=== PATIENT | male | born 1940 | race Caucasian/White ===

== ENCOUNTER 2020-12-16 16:49 | Emergency (ER) | payer OTHER ==
[~2020-12-16] VITALS: Ht 185.4 cm; Wt 93.4 kg
[2020-12-16] MEDS ORDERED: Lipitor20 MG PO (17:06)
[2020-12-16] MEDS ORDERED: PAXIL40 MG PO (17:07)
[2020-12-16] MEDS ORDERED: METO100ER PO (17:07)
[2020-12-16] MEDS ORDERED: GABA800 PO (17:07)
[2020-12-16] MEDS ORDERED: OMEP20ER PO (17:08)
[2020-12-16] MEDS ORDERED: ISOSORBIDE MONO30 MG PO (17:08)
[2020-12-16] MEDS ORDERED: HYDCHL25 PO (17:09)
[2020-12-16] MEDS ORDERED: ELIQUIS5 MG PO (17:09)
[2020-12-16 17:10] LABS: BASOPHILS ABSOLUTE AUTO 0.04 K/mm3 (0.00-0.23); BASOPHILS PERCENT AUTO 1 % (0-2); EOSINOPHILS ABSOLUTE AUTO 0.13 K/mm3 (0.00-0.68); EOSINOPHILS PERCENT AUTO 2 % (0-6); Hematocrit 36.7 % (37.0-53.0); Hemoglobin 11.9 g/dL (13.5-17.5); IMMATURE GRAN ABSOLUTE AUTO 0.02 K/mm3 (0.00-0.10); IMMATURE GRAN PERCENT AUTO 0 % (0-1); LYMPHOCYTES ABSOLUTE AUTO 1.21 K/mm3 (0.84-5.20); LYMPHOCYTES PERCENT AUTO 14 % (21-46); MONOCYTES ABSOLUTE AUTO 0.77 K/mm3 (0.16-1.47); MONOCYTES PERCENT AUTO 9 % (4-13); Mean Corpuscular HGB 32.6 pg (26.0-34.0); Mean Corpuscular HGB Conc 32.4 g/dL (31.5-36.5); Mean Corpuscular Volume 101 fL (80-100); Mean Platelet Volume 10.3 fL (9.1-12.4); NEUTROPHILS ABSOLUTE AUTO 6.54 K/mm3 (1.96-9.15); NEUTROPHILS PERCENT AUTO 75 % (41-73); Platelet Count 151 K/mm3 (150-400); RDW Coefficient Variation 13.9 % (11.7-14.2); RDW Standard Deviation 51.9 fL (35.1-46.3); Red Blood Cell Count 3.65 M/mm3 (4.30-5.90); White Blood Cell Count 8.71 K/mm3 (4.00-11.30)
[2020-12-16] MEDS ORDERED: ATEN100 PO (17:10)
[2020-12-16] MEDS ORDERED: TRAZ50 PO (17:10)
[2020-12-16 17:34] LABS: Alanine Aminotransfer (ALT/SGP 19 U/L (12-78); Albumin, Blood 3.5 g/dL (3.4-5.0); Albumin/Globulin Ratio 1.1 (0.8-1.8); Alk Phos 57 U/L (50-136); Anion Gap 5 mmol/L (6-16); Aspartate Aminotrans (AST/SGOT 12 U/L (12-37); Bilirubin, Total 1.8 mg/dL (0.1-1.0); Blood Urea Nitrogen 18 mg/dL (8-24); Bun/Creatinine Ratio 24.6 (12.0-20.0); CO2, Blood 29 mmol/L (21-32); Chloride, Blood 107 mmol/L (98-108); Creatinine, Blood 0.73 mg/dL (0.60-1.20); Globulin, Blood 3.3 g/dL (2.2-4.0); Glomerular Filtration Rate >60 (60-); Glucose, Blood 145 mg/dL (70-99); Sodium, Blood 141 mmol/L (136-145); Total Protein, Blood 6.8 g/dL (6.4-8.2); Troponin I <0.015 ng/mL (0.000-0.040)
[2020-12-16] MEDS ORDERED: HYDR1TAB94 PO (18:35)
== END 2020-12-16 19:14 | disposition home or self-care (01) ==
LOC: ER 16:49
PROVIDERS: Emergency Medicine
DX: S20.214A Contusion of middle front wall of thorax, initial encounter (principal); R91.1 Solitary pulmonary nodule; I48.91 Unspecified atrial fibrillation; I10 Essential (primary) hypertension; E78.5 Hyperlipidemia, unspecified; E11.9 Type 2 diabetes mellitus without complications; Z79.01 Long term (current) use of anticoagulants; Z79.899 Other long term (current) drug therapy; W01.10XA Fall on same level from slipping, tripping and stumbling with subsequent striking against unspecified object, initial encounter
CPT/HCPCS: 71260; 80053; 84484; 85025; 93005; 93010; 99284-25; Q9967

== ENCOUNTER 2022-06-27 12:38 | Day surgery (SDC) | payer OTHER ==
[~2022-06-27] VITALS: Ht 185.4 cm; Wt 77.7 kg
[~2022-06-27 12:38] MED LIST: ATEN100 PO; ELIQUIS5 MG PO; GABA800 PO; HYDCHL25 PO; HYDR1TAB94 PO; ISOSORBIDE MONO30 MG PO; Lipitor20 MG PO; METO100ER PO; OMEP20ER PO; PAXIL40 MG PO; TRAZ50 PO
[2022-06-27] MEDS ORDERED: ACET500 PO (13:22)
[2022-06-27] MEDS ORDERED: Vitamin B-12100 MCG PO (13:22)
[2022-06-27] MEDS ORDERED: MAGNESIUM OXID500 MG PO (13:23)
[2022-06-27] MEDS ORDERED: ATOR10 PO (13:23)
--- NOTE | 2022-06-27 13:33 | NUR ---
06/27/22 1333 Brandy Granger CALL LIGHT WITHIN REACH. TETRACAINE AT 1322 IN LEFT EYE AND PLEDGETT AT 1325
== END 2022-06-27 14:50 | disposition home or self-care (01) ==
LOC: ORSCSDS 12:38
PROVIDERS: Ophthalmology
PROC: 08RK3JZ Replacement of Left Lens with Synthetic Substitute, Percutaneous Approach (ICD-10-PCS; principal; 2022-06-27 13:30)
DX: H25.12 Age-related nuclear cataract, left eye (principal); I10 Essential (primary) hypertension; I48.91 Unspecified atrial fibrillation; Z79.01 Long term (current) use of anticoagulants; Z79.899 Other long term (current) drug therapy
CPT/HCPCS: J2001; J2250; J3010; J3301; J7040; V2632

== ENCOUNTER 2022-07-06 09:24 | Day surgery (SDC) | payer OTHER ==
[~2022-07-06] VITALS: Ht 185.4 cm; Wt 77.0 kg
[~2022-07-06 09:24] MED LIST changes: +ACET500 PO; +ATOR10 PO; +MAGNESIUM OXID500 MG PO; +Vitamin B-12100 MCG PO
[2022-07-06] MEDS ORDERED: Lisinopril2.5 MG PO (09:39)
[2022-07-06] MEDS ORDERED: PARO20 PO (09:39)
[2022-07-06] MEDS ORDERED: TRAZ50 PO (09:39)
--- NOTE | 2022-07-06 09:46 | NUR ---
07/06/22 0946 Brandy Granger CALL LIGHT WITHIN REACH. LO AT 0940 IN RIGHT EYE AND YAA AT 0942
--- NOTE | 2022-07-06 11:27 | NUR ---
07/06/22 1127 Ruthie Owen PT. VOIDED BEFORE DISHCARGE.
== END 2022-07-06 11:25 | disposition home or self-care (01) ==
LOC: ORSCSDS 09:24
PROVIDERS: Ophthalmology
PROC: 08RJ3JZ Replacement of Right Lens with Synthetic Substitute, Percutaneous Approach (ICD-10-PCS; principal; 2022-07-06 10:30)
DX: H25.11 Age-related nuclear cataract, right eye (principal); Z96.1 Presence of intraocular lens; I10 Essential (primary) hypertension; I48.91 Unspecified atrial fibrillation; F41.9 Anxiety disorder, unspecified; F32.A Depression, unspecified; F43.10 Post-traumatic stress disorder, unspecified; Z87.891 Personal history of nicotine dependence; Z79.01 Long term (current) use of anticoagulants; Z79.899 Other long term (current) drug therapy
CPT/HCPCS: 82947; J2001; J2250; J3010; J3301; J7040; V2632

== ENCOUNTER 2022-11-05 17:06 | Inpatient (IN) | payer OTHER ==
[~2022-11-05] VITALS: Ht 182.9 cm; Wt 75.6 kg
[~2022-11-05 17:06] MED LIST changes: +Lisinopril2.5 MG PO; +PARO20 PO
[2022-11-05 17:59] LABS: Hematocrit 40.5 % (37.0-53.0); Hemoglobin 13.6 g/dL (13.5-17.5); Mean Corpuscular HGB 32.9 pg (26.0-34.0); Mean Corpuscular HGB Conc 33.6 g/dL (31.5-36.5); Mean Corpuscular Volume 98 fL (80-100); Platelet Count 281 K/mm3 (150-400); RDW Coefficient Variation 14.6 % (11.7-14.2); RDW Standard Deviation 51.8 fL (35.1-46.3); Red Blood Cell Count 4.13 M/mm3 (4.30-5.90); White Blood Cell Count 16.94 K/mm3 (4.00-11.30)
[2022-11-05 18:28] LABS: Albumin, Blood 2.3 g/dL (3.4-5.0); Albumin/Globulin Ratio 0.6 (0.8-1.8); Bilirubin, Total 1.2 mg/dL (0.1-1.0); Bun/Creatinine Ratio 40.4 (12.0-20.0); Calcium, Blood 9.6 mg/dL (8.5-10.1); Creatinine, Blood 1.14 mg/dL (0.60-1.20); Globulin, Blood 3.8 g/dL (2.2-4.0); Total Protein, Blood 6.1 g/dL (6.4-8.2)
[2022-11-05 18:32] LABS: Magnesium, Blood 2.5 mg/dL (1.6-2.4)
[2022-11-05 18:53] LABS: BAND PERCENT MAN 8 % (0-8); BASOPHILS PERCENT MAN 0 % (0-2); EOSINOPHILS PERCENT MAN 0 % (0-6); LYMPHOCYTES ABSOLUTE MAN 0.16 K/mm3 (0.84-5.20); LYMPHOCYTES PERCENT MAN 1 % (21-46); MONOCYTES ABSOLUTE MAN 0.16 K/mm3 (0.16-1.47); MONOCYTES PERCENT MAN 1 % (4-13); SEG NEUTROPHILS PERCENT MAN 90 % (41-73); TOTAL CELLS COUNTED 100
[2022-11-05 18:54] LABS: Base Excess Venous -7.9 mmol/L; Bicarbonate Venous 18.7 mmol/L (24.0-30.0); PCO2 Venous 34.9 mmHg (38-42); pH Blood Venous 7.32 (7.34-7.37)
[2022-11-05 19:21] LABS: Beta-hydroxybutyrate 98.5 mg/dL (0.2-2.8)
[2022-11-05 19:28] LABS: Influenza A, PCR NEGATIVE (NEGATIVE); Influenza B, PCR NEGATIVE (NEGATIVE); Resp Syncytial Virus, PCR NEGATIVE (NEGATIVE); SARS-Cov-2 (COVID-19) PCR, MMC NEGATIVE (NEGATIVE)
[2022-11-05 20:10] LABS: Glucose, Blood 884 mg/dL (70-99)
[2022-11-05 21:53] LABS: Bun/Creatinine Ratio 42.2 (12.0-20.0); Calcium, Blood 8.7 mg/dL (8.5-10.1); Creatinine, Blood 1.09 mg/dL (0.60-1.20); Potassium, Blood 2.4 mmol/L (3.5-5.5)
[2022-11-05] MEDS ORDERED: HYDCHL25 PO (21:54)
[2022-11-06 00:55] LABS: Glucose, Blood 873 mg/dL (70-99)
--- NOTE | 2022-11-06 01:36 | NUR ---
PT ARRIVED FROM ER AT 0037. PT ON 6LNC. POTASSIUM BEING REPLACED VIA IV
[2022-11-06 02:11] LABS: PCO2 Arterial 23.9 mmHg (35-45); PO2 Arterial 54.7 mmHg (80-100); pH Blood Arterial 7.42 (7.35-7.45)
[2022-11-06 02:28] LABS: Magnesium, Blood 2.7 mg/dL (1.6-2.4)
[2022-11-06 02:46] LABS: Bun/Creatinine Ratio 40.9 (12.0-20.0); Calcium, Blood 9.5 mg/dL (8.5-10.1); Creatinine, Blood 1.1 mg/dL (0.60-1.20); Phosphorus, Blood 2.2 mg/dL (2.5-4.9); Potassium, Blood 2.6 mmol/L (3.5-5.5)
--- NOTE | 2022-11-06 02:47 | NUR ---
INSULIN GTT NOT STARTED DUE TO LOW POTASSIUM LEVELS, AWARE
[2022-11-06 04:37] LABS: PCO2 Arterial 24.9 mmHg (35-45); PO2 Arterial 67.5 mmHg (80-100); pH Blood Arterial 7.37 (7.35-7.45)
--- NOTE | 2022-11-06 04:42 | NUR ---
UPDATED ON ABG RESULT
[2022-11-06 06:18] LABS: BASOPHILS ABSOLUTE AUTO 0.09 K/mm3 (0.00-0.23); BASOPHILS PERCENT AUTO 1 % (0-2); Hematocrit 38.9 % (37.0-53.0); Hemoglobin 12.7 g/dL (13.5-17.5); LYMPHOCYTES ABSOLUTE AUTO 0.39 K/mm3 (0.84-5.20); LYMPHOCYTES PERCENT AUTO 2 % (21-46); MONOCYTES ABSOLUTE AUTO 0.51 K/mm3 (0.16-1.47); MONOCYTES PERCENT AUTO 3 % (4-13); Mean Corpuscular HGB 32.6 pg (26.0-34.0); Mean Corpuscular HGB Conc 32.6 g/dL (31.5-36.5); Mean Corpuscular Volume 100 fL (80-100); Mean Platelet Volume 12.8 fL (9.1-12.4); Platelet Count 284 K/mm3 (150-400); RDW Coefficient Variation 14.9 % (11.7-14.2); White Blood Cell Count 18.33 K/mm3 (4.00-11.30)
[2022-11-06 06:20] LABS: EOSINOPHILS ABSOLUTE AUTO 0.23 K/mm3 (0.00-0.68); EOSINOPHILS PERCENT AUTO 1 % (0-6); IMMATURE GRAN ABSOLUTE AUTO 0.06 K/mm3 (0.00-0.10); IMMATURE GRAN PERCENT AUTO 0 % (0-1); NEUTROPHILS ABSOLUTE AUTO 17.05 K/mm3 (1.96-9.15); NEUTROPHILS PERCENT AUTO 93 % (41-73)
--- NOTE | 2022-11-06 06:40 | NUR ---
SUMMARY NEURO: PT A/O X0. PT STATES IT IS 1926 AND THAT HIS NAME IS PAMELA. PT ABLE TO WEAKLY FOLLOW COMMANDS IN ALL EXTREMETIES WITH EQUAL STRENGTH. PER ER REPORT, PT'S SON STATED HE HAD STROKE LIKE SYMPTOMS WITH A L SIDE FACIAL DROOP ON 10/30/22 AND THEN FELL ON 11/01/22, PT LOST APPETITE AND SON HAD TO LIFT PT TO THE BATHROOM. PUPILS EQUAL AND REACTIVE. VISUAL HALLUCINATIONS PRESENT. RESPIRATORY: IMAGING SHOWED LOWER LOBE PNA. PT WAS ON 6L NC FROM ER, HAS SINCE INCREASED TO 14 L HFNC- MANAGED BY RESPIRATORY CARE. PT'S EXTREMETIES ARE DUSKY AND CYANOTIC, UNABLE TO FIND AN SPO2 PLETH DESPITE ATTEMPTS WITH DIFFERENT PULSE OX. ABG DRAWN SHOWED PO2 OF 53, REPEAT PO2 OF 67. PROVIDER MADE AWARE. RT STATING PT DOESNT NEED AIRVO AT THIS TIME. PT HAS HX OF SLEEP APNEA. NO COUGH OR SECRETIONS NOTED. NEGATIVE RESPIRATORY PANEL. CARDIO: PT HAS A HX OF AFIB, PT WAS IN AFIB WITH RVR- 5MG METOPROLOL PUSH GIVEN. FAINT RADIAL PULSES. DOPPLER BLE. +1 EDEMA BLE. BEAR HUGGER TO BLE. TEMP 96.5. GI: SEE IMAGING- BOWEL OBSTRUCTION/ PERFORATION NOT EXCLUDED. PANCREATIC MASS SEEN ON BEDSIDE ULTRASOUND PER ER REPORT. NO BM THIS SHIFT. CANCER ANTIGEN 19-9 SENT, SON UPDATED ON CONCERN. : CONDOM CATHETER IN PLACE, PINK/WHITNEY URINE. INCONTINENT. SKIN: FOREHEAD BRUISING AND LARGE CRUSTED SCAB- PHOTOS IN CHART. STAGE THREE PRESSURE AREAS AND LARGE AREA OF MACERATION ON SACRUM- PHOTOS IN CHART. PT MOTTLED TO HIP. COOL CYANOTIC, EXTREMETIES. DRY ORAL MUCOSA. PT'S POTASSIUM IS CRITICALLY LOW, BLOOD SUGARS CRITICALLY HIGH. PT HAS RECIEVED 80MEQ OF POTASSIUM AND KPHOS. UNABLE TOLERATE PO
[2022-11-06 06:56] LABS: Magnesium, Blood 2.7 mg/dL (1.6-2.4)
[2022-11-06 07:15] LABS: Albumin, Blood 2.2 g/dL (3.4-5.0); Albumin/Globulin Ratio 0.6 (0.8-1.8); Bilirubin, Total 1.2 mg/dL (0.1-1.0); Bun/Creatinine Ratio 42.9 (12.0-20.0); Calcium, Blood 9.1 mg/dL (8.5-10.1); Creatinine, Blood 1.12 mg/dL (0.60-1.20); Globulin, Blood 3.4 g/dL (2.2-4.0); Phosphorus, Blood 3.3 mg/dL (2.5-4.9); Potassium, Blood 3.4 mmol/L (3.5-5.5); Total Protein, Blood 5.6 g/dL (6.4-8.2)
[2022-11-06 08:18] LABS: Source, Urine Clean Catch
[2022-11-06 08:24] LABS: Appearance, Urine Clear (Clear); Bilirubin, Urine Neg (Neg); Blood, Urine 5+ (Neg); Color, Urine Red (P-Yellow); Glucose Qualitative, Urine 4+ (Neg); Ketones, Urine 3+ (Neg); Leukocyte Esterase, Urine 1+ (Neg); Nitrite, Urine Neg (Neg); Protein, Urine 3+ (Neg); Urobilinogen, Urine NORM (Normal)
[2022-11-06 08:51] LABS: Bacteria Rare /hpf; Red Blood Cells, Urine TNTC /hpf (0-2); Squamous Epithelial Cells Not Seen /hpf (Few)
[2022-11-06 08:55] LABS: Source, Urine Foley catheter
--- NOTE | 2022-11-06 08:57 | NUR ---
ASSUMED CARE PT IS A&O X1; EXTREMELY CONFUSED AND ORIENTED TO SELF. AGITATED W/ ANY PHYSICAL INTERVENTION. SPO2 >92% ON 14L HF NC. MAP >65. INSULIN GTT @ 4UNITS/HR; NS @ 75ML/HR; K-DUR @ 30MLS/HR. INSULIN AND FLUIDS STARTED AT [address] MURGUIA. PT INCONTINENT W/ SMALL AMOUNTS OF URINATION AT A TIME; URINE IS BRIGHT RED. PUPILS EQUAL BILATERALLY. PT UNABLE TO BE REORIENTED. LEFT EYELID STAYS CLOSED/PARTIALLY OPEN WHILE RIGHT EYE OPENS WNL. PT PULLS AT RESTRAINT W/ RA MORE THAN LA; LA TENSE. PT IS TREMULOUS.
[2022-11-06 08:59] LABS: Appearance, Urine Clear (Clear); Bilirubin, Urine Neg (Neg); Blood, Urine 5+ (Neg); Color, Urine Red (P-Yellow); Glucose Qualitative, Urine 4+ (Neg); Ketones, Urine 3+ (Neg); Leukocyte Esterase, Urine 2+ (Neg); Nitrite, Urine Neg (Neg); Protein, Urine 3+ (Neg); Specific Gravity, Urine 1.015 (1.003-1.022); Urobilinogen, Urine NORM (Normal)
[2022-11-06 09:07] LABS: Bacteria Rare /hpf; Red Blood Cells, Urine TNTC /hpf (0-2); Squamous Epithelial Cells Rare /hpf (Few)
[2022-11-06 10:11] LABS: Magnesium, Blood 2.4 mg/dL (1.6-2.4)
[2022-11-06 10:24] LABS: Bun/Creatinine Ratio 39.5 (12.0-20.0); Calcium, Blood 9.3 mg/dL (8.5-10.1); Creatinine, Blood 1.14 mg/dL (0.60-1.20); Phosphorus, Blood 2.1 mg/dL (2.5-4.9); Potassium, Blood 4.2 mmol/L (3.5-5.5)
[2022-11-06 11:04] LABS: Glucose, Blood 593 mg/dL (70-99)
--- NOTE | 2022-11-06 11:45 | NUR ---
UPDATE PT IS LESS AGITATED AND RESTING COMFORTABLY/QUIETLY.
[2022-11-06 13:23] LABS: Glucose, Blood 446 mg/dL (70-99)
[2022-11-06 14:55] LABS: Albumin, Blood 1.9 g/dL (3.4-5.0); Albumin/Globulin Ratio 0.6 (0.8-1.8); Bilirubin, Total 0.8 mg/dL (0.1-1.0); Bun/Creatinine Ratio 41.7 (12.0-20.0); Calcium, Blood 8.9 mg/dL (8.5-10.1); Creatinine, Blood 1.03 mg/dL (0.60-1.20); Globulin, Blood 3.3 g/dL (2.2-4.0); Potassium, Blood 3.4 mmol/L (3.5-5.5); Total Protein, Blood 5.2 g/dL (6.4-8.2)
--- NOTE | 2022-11-06 17:32 | NUR ---
SHIFT SUMMARY NO ACUTE CHANGES IN MENTATION SINCE UPDATE. SPO2 >92% ON 10L NC; MAP >60. INSULIN GTT @ 2UNITS/HR; NS @ 75MLS/HR; KPHOS 20MM RUNNING OVER 4 HOURS. URINE HAS GOTTEN DARKER FROM BRIGHT RED TO COLA COLORED OVER SHIFT. LUNG SOUNDS CLEAR W/ DIM BASES. BOYD PATENT AND DRAINING TO GRAVITY. PT GIVEN 1 TIME DOES OF ATIVAN 0.5MG; PT WAS CALM AND RESTING FOR MAJORITY OF SHIFT; WOKE UP AT 1700 AGITATED AND ATTEMPTING TO PULL LINES.
[2022-11-06 18:31] LABS: Bun/Creatinine Ratio 46.6 (12.0-20.0); Calcium, Blood 9.4 mg/dL (8.5-10.1); Creatinine, Blood 0.94 mg/dL (0.60-1.20)
[2022-11-06 20:54] LABS: Bun/Creatinine Ratio 42.1 (12.0-20.0); Calcium, Blood 8.3 mg/dL (8.5-10.1); Creatinine, Blood 0.86 mg/dL (0.60-1.20); Potassium, Blood 2.6 mmol/L (3.5-5.5)
[2022-11-07 01:51] LABS: Bun/Creatinine Ratio 41.7 (12.0-20.0); Calcium, Blood 9.2 mg/dL (8.5-10.1); Creatinine, Blood 0.86 mg/dL (0.60-1.20); Potassium, Blood 3.2 mmol/L (3.5-5.5)
--- NOTE | 2022-11-07 02:05 | NUR ---
NOTIFIED MD OF PT BG DROPPING FROM 122 TO 89. SHUT OFF INSULIN. ORDERED TO INCREASE RATE OF D5 1/2 NS TO 100 ML/HR.
--- NOTE | 2022-11-07 04:25 | NUR ---
SPOKE WITH MD. UPDATED ON PATIENTS BG WITH INSULIN GTT OFF. MOST RECENT SAMPLES WERE 145 AND 137. INSTRUCTED TO KEEP INSULIN GTT OFF UNLESS BG GETS >200.
--- NOTE | 2022-11-07 05:36 | NUR ---
END OF SHIFT REPORT: PER MD INSULIN SHUT OFF UNTIL >200. D5 1/2 NS AT 75 ML/HR. SEE REVIEW FOR PTS LAST BLOOD GLUCOSE LEVELS. NEURO: PT INTERMITTENTLY ORIENTED TO SELF AND OCCASIONAL FOLLOWS COMMAND: WIGGLE YOUR TOES OR GIVE ME A THUMBS UP. LABILE. WILL BE IMPULSIVE AND PULL AND LINES AND WIRES. ATIVAN 0.5MG IV DOSES APPEAR TO ALLEVIATE THRASHING AND SCREAMING BEHAVIOR. RESPIRATORY: TACHYPNEIC AND SHALLOW RESPIRATIONS. 10L HFNC SAT >95%. BREATH SOUNDS CLEAR BILATERALLY AND DIMINISHED IN THE BASES. CARDIAC: AFIB. HR 110s. BP AVERAGING 100s/70s WITH MAPS >65. CAP REFILL > 3 SECONDS. GI/: INCONTINENT. NO BOWEL MOVEMENT OVERNIGHT. BOWEL SOUNDS HYPOACTIVE AND NO GRIMACING NOTED TO FACE WITH PALPATION TO ABDOMEN. BOYD CATHETER SECURED AND DRAINING TO GRAVITY WITH NO DEPENDENT LOOPS. OUTPUT IS RED/BROWN WITH RED SEDIMENT. AVERAGING 30-40 ML/HR OF OUTPUT. MUSCULOSKELETA: LLE LIMITED RANGE OF MOTION DUE TO LOCKED KNEE. LIMBS CAN OVERCOME RESISTANCE DETERMINED BY PATIENTS THRASHING. INTEGUMENTARY: SCAB NOTED TO RIGHT SIDE OF FOREHEAD. DIFFUSE BRUISING TO BUE. SKIN TEAR AND REDNESS NOTED TO COCCYX. TURNING PT Q2 AND APPLYING ZINC CREAM. MEPILEX PRESENT. SKIN COOL AND FRAGILE. CYANOTIC TOES AND MOTTLING TO RIGHT KNEE HAVE IMPROVED SINCE START OF SHIFT.
[2022-11-07 06:20] LABS: Albumin, Blood 1.8 g/dL (3.4-5.0); Anion Gap 6 mmol/L (6-16); Blood Urea Nitrogen 35 mg/dL (8-24); Bun/Creatinine Ratio 42.8 (12.0-20.0); CO2, Blood 26 mmol/L (21-32); Chloride, Blood 118 mmol/L (98-108); Creatinine, Blood 0.82 mg/dL (0.60-1.20); Glomerular Filtration Rate 87 (60-); Glucose, Blood 155 mg/dL (70-99); Magnesium, Blood 2.1 mg/dL (1.6-2.4); Phosphorus, Blood 1.4 mg/dL (2.5-4.9); Potassium, Blood 3.5 mmol/L (3.5-5.5); Sodium, Blood 150 mmol/L (136-145)
[2022-11-07 10:00] LABS: Calcium, Ionized (POC) 1.09 mmol/L (1.10-1.46); Chloride (POC) 92 mmol/L (98-108); Creatinine (POC) 1.2 mg/dL (0.8-1.3); Glucose (ISTAT POC) >700 mg/dL (70-99); Hemoglobin (POC) 15.3 g/dL (13.5-17.5); Potassium (POC) 3.1 mmol/L (3.5-5.5); Sodium (POC) 131 mmol/L (135-148); Total CO2 (POC) 20 mmol/L (21-32)
[2022-11-07 11:13] LABS: Bun/Creatinine Ratio 48.2 (12.0-20.0); Calcium, Blood 8.9 mg/dL (8.5-10.1); Creatinine, Blood 0.85 mg/dL (0.60-1.20)
--- NOTE | 2022-11-07 15:08 | NUR ---
multiple visits to pt. He is aggitited and displaying significant pain and spasms. He is also struggling with a sore mouth. With assitance from staff. Extensive oral care. He has large casts in the back of the throat and his lipt tounge and mouth has breakdown and slough. Used bite block and multiple moist sponges and cleared copious dried secretions from oral pharnyx. Reviewed with repitory therapist. ordered magic mouthwash. Pt frail and displying delirium. Review with son the past few months. States he has had extensive care at the [facility]. He had cataract surgery and has had to see the urologist several times. He has been having great struggles feeling spasms and need to void and then cant. son relays rapid loss in balance and ability to ambulate. Review of diagnositics presesnt possible malignancy. Reviw with physician and son presents decline. Relayed to son to speak with his family about his future care needs and decline. Expressed concern for increased suffering. Son relayed that the urologist discussed hospice due to the facet he needs medical interventions and possible surgery and pt does not want treatments. Son agreed comfort measures and transition to hospice would better fit his needs and his wishes. Difficult conversation with son He lost his from cancer and his mother. Will continue antibiotics for now and insulin coverage and add comfort medication. Goal is to get him out of restraints and some comfort. Nursing relayed to son that with the added sedation pt may pass sooner. Son was understanding....feels his pain has been greatly increasing and understands it is time for hospice.
--- NOTE | 2022-11-07 18:50 | NUR ---
END OF SHIFT SUMMARY PT STARTED SHIFT RESTLESS AND YELLING REQUIRING BEDSIDE SITTER AND RESTRAINTS. PALLIATIVE CARE CONSULT AND MD TO BEDSIDE. FAMILY WISHES TO TRANSITION TO COMFORT CARE, APPRECIATE PALLIATIVE RN'S MULTIPLE REASSESSMENTS AND ASSIST WITH MEDICATION CHANGES. MEDICATED WITH ROXANOL AND ATIVAN PRN. TYLENOL GIVEN [place] X2. SON, COUSIN, GRANDSON AND GRANDDAUGHTER TO BEDSIDE THIS EVENING. ABLE TO D/C RESTRAINTS AND BOYD AT 1600, PT MUCH MORE COMFORTABLE AFTER BOYD D/C'D. FAMILY UPDATED ON POC, ALL QUESTIONS ANSWERED AND EMOTIONAL SUPPORT PROVIDED. COMFORT CART ORDERED. PT REPOSITIONED PRN FOR COMFORT.
--- NOTE | 2022-11-07 22:27 | NUR ---
REPORT GIVEN TO OSKAR DAVIS. TRANSFERRED TO ROOM 324.
--- NOTE | 2022-11-07 23:42 | NUR ---
PT ARRIVED TO UNIT AT 2230 ACCOMPANIED BY GRANDSON AND GRANDSON'S , GABY, WHO IS A HOSPICE NURSE. SHE IS REQUESTING TO STAY WITH HIM AND WOULD LIKE TO PROVIDE PM CARE, IF SHE IS HERE WHEN HE PASSES. SON, TODD, IS TO BE NOTIFIED UPON PASSING. [employer] MORTUARY IS HOME. GABY REQUESTS PT NOT BE DISTURBED FOR REPOSITIONING, ONLY FOR CHANGES IF SOILED. ANAND IS A POW AND, IN HER OPINION, IS HAVING SEVERE PTSD, HE HAS BEEN COMBATIVE IN THE PAST, WHEN NOT MEDICATED WITH ROXANOL AND ATIVAN.
--- NOTE | 2022-11-08 06:30 | NUR ---
DRY PRESS OPERATOR HELPER SUMMARY: PT UNRESPONSIVE SINCE ADMIT TO FLOOR. [id number] AT BEDSIDE; SHE IS A HOSPICE NURSE AND VERY VERSED IN COMFORT CARE MEDICATIONS AND MAINTAINS COMMUNICATION WITH STAFF. HAS DECLINED ANY REPOSITIONING FOR PATIENT AND REQUESTS ONLY PERTINENT THINGS, SUCH CHANGES IF SOILED. HAS NOT VOIDED OR HAD BM SINCE ARRIVAL. ORAL CARE DECLINED CONSIDERING PATIENT'S COMFORT LEVEL. GRADDAUGHTER VOICES UNDERSTANDING OF DECLINATION OF SUCH CARE. WILL REPORT TO ONCOMING RN.
--- NOTE | 2022-11-08 11:55 | NUR ---
PT PASSED AT 1142, PROVIDER AND FAMILY NOTIFIED. CHARGE NURSE WAS ALSO NOTIFIED AND WILL CONTACT THE MORTUARY OF THEIR CHOICE, [employer]. HIS SON IS ON THE WAY TO SEE HIM, PALLIATIVE CARE IS ALSO CURRENTLY IN THE ROOM. SPIRITUAL MARINE PAINTER HAS ALSO BEEN NOTIFIED.
--- NOTE | 2022-11-08 12:32 | NUR ---
Spiritual care visit conducted. Pt had recently and his son Alban is leaving as I am coming the room. He had stated that he is overwhelmed and needs to leave. I then provide spiritual care to pt's Granddaughter in law, Terrie, and conduct a life review, supply grief support and a calming presence. Terrie grieves appropriately and displays that she has excellent coping skills and resources. Terrie shows signs of being comforted.
--- NOTE | 2022-11-08 14:46 | NUR ---
Family notified of passing. They were in for visit and post mortenm care.
== END 2022-11-08 11:42 | DRG 637 ==
LOC: ER 17:06 → ICUW 11-06 00:57 → MEDS 11-07 22:00
PROVIDERS: Emergency Medicine; Family Medicine; Internal Medicine; ADMIT Internal Medicine
DX: E11.11 Type 2 diabetes mellitus with ketoacidosis with coma (principal); G93.41 Metabolic encephalopathy; J69.0 Pneumonitis due to inhalation of food and vomit; C22.7 Other specified carcinomas of liver; Z66 Do not resuscitate; Z51.5 Encounter for palliative care; I48.91 Unspecified atrial fibrillation; Z20.822 Contact with and (suspected) exposure to COVID-19; M19.90 Unspecified osteoarthritis, unspecified site; I10 Essential (primary) hypertension; E78.5 Hyperlipidemia, unspecified; F32.A Depression, unspecified; E11.9 Type 2 diabetes mellitus without complications; E87.6 Hypokalemia; G47.33 Obstructive sleep apnea (adult) (pediatric); R31.9 Hematuria, unspecified; N20.0 Calculus of kidney; Z28.21 Immunization not carried out because of patient refusal; Z88.1 Allergy status to other antibiotic agents; Z88.2 Allergy status to sulfonamides; Z91.038 Other insect allergy status; Z79.01 Long term (current) use of anticoagulants; Z79.899 Other long term (current) drug therapy
CPT/HCPCS: 0241U; 36415; 36600; 51703; 51798; 70450; 71045; 74177; 80047; 80048; 80053; 80069; 81001; 82010; 82803; 82947; 83605; 83735; 83880; 83930; 84100; 85014; 85025; 86301; 87040; 87077; 87086; 87186; 93005; 93010; 94760; 94762; 96365-59; 96366; 96367; 99285-25; A9270; C1751; J0456; J1815; J1956; J2060; J2543; J3480; J7030; J7040; J7042; J7050; Q9967